=== PATIENT | female | born 1940 | race Caucasian/White ===

== ENCOUNTER → 2019-08-13 14:58 | Outpatient (BNVA) | payer MEDICARE, MEDICAID, SELFPAY | PROVIDERS: Family Provider Nurse Practitioner Family; PCP Family Medicine; Visit Provider Family Medicine | DX: R10.9 Unspecified abdominal pain (principal); M15.9 Polyosteoarthritis, unspecified | CPT/HCPCS: 81003 ==

== ENCOUNTER → 2019-10-15 16:42 | Outpatient (BNVA) | payer MEDICARE, MEDICAID, SELFPAY | PROVIDERS: Family Provider Nurse Practitioner Family; PCP Family Medicine; Visit Provider Family Medicine | DX: I10 Essential (primary) hypertension (principal); M15.9 Polyosteoarthritis, unspecified | CPT/HCPCS: 80053 ==

== ENCOUNTER 2020-08-19 11:20 | Outpatient (CLI) | payer MEDICARE, MEDICAID, SELFPAY ==
--- NOTE | 2020-08-19 11:33 | USCV_ITS ---
Shannan Luther Age: 79 Gender: F : 1940 Exam Date: 08/19/2020 11:42 Ordering Phys: Priscila Kimbrough SAND MILL OPERATOR FACING SAND-C SAND MILL OPERATOR FACING SAND Technologist: Ciro King Exam Location: [facility] [place] Indication: INTERMITTENT CLAUDICATION RIGHT LEFT Brachial 187.00 mmHg Brachial 179.00 mmHg Pressure (mmHg) Waveform Pressure (mmHg) Waveform 220.00 ADMITTANCE ATTENDANT 200.00 DPA 1.18 Ankle/Brachial Index 120.00 Pre-Exercise Toe Pressure 0.64 Pre-Exercise Toe/Brachial Index FINDINGS Normal resting NICK on the right side of 1.18 Slightly diminished resting TBI on the right side of out.64 CONCLUSIONS Features of mild peripheral artery disease in the right lower extremity Dr Elliott Singh MD [facility] (Electronically Signed) Final Date: 19 August 2020 19:11 S
== END 2020-08-19 11:21 | disposition home or self-care (01) ==
LOC: US 11:20
PROVIDERS: PCP Nurse Practitioner Family; Visit Provider Nurse Practitioner Family
DX: I73.9 Peripheral vascular disease, unspecified (principal); E78.5 Hyperlipidemia, unspecified; I10 Essential (primary) hypertension
CPT/HCPCS: 80053; 80061; 84550; 93922

== ENCOUNTER → 2020-08-27 09:18 | Outpatient (BNVA) | payer MEDICARE, MEDICAID, SELFPAY | PROVIDERS: PCP Nurse Practitioner Family; Visit Provider Nurse Practitioner Family | DX: I10 Essential (primary) hypertension (principal) | CPT/HCPCS: 80053 ==

== ENCOUNTER → 2021-02-17 13:49 | Outpatient (BNVA) | payer MEDICARE, MEDICAID, SELFPAY | PROVIDERS: PCP Nurse Practitioner Family; Visit Provider Nurse Practitioner Family | DX: R39.9 Unspecified symptoms and signs involving the genitourinary system (principal) | CPT/HCPCS: 81000 ==

== ENCOUNTER 2021-06-28 12:49 | Emergency (ER) | payer MEDICARE, MEDICAID, SELFPAY ==
--- NOTE | 2021-06-28 12:52 | ED_ITS ---
HPI - Fall General: Chief Complaint: Fall Stated Complaint: FALL L SHOULDER PAIN Time Seen by Provider: 06/28/21 12:52 History of Present Illness: HPI Narrative: Ms. Luther is a 80-year-old lady with history of hypertension and history of chronic pain who presents to the emergency department due to fall. She reports being at her baseline health and was out at [facility]. She caught her foot on a wheel that was sticking out and tripped apparently falling forward landing primarily with her left shoulder against a chair and possibly hitting her head. She denie s loss of consciousness though was not responding for a short period of time. She denies preceding chest pain, shortness of breath, lightheadedness, dizziness. She currently primarily endorses left shoulder pain. Intensity is moderate to severe. Improved with morphine prior to arrival and a sling was placed. Additionally endorses tingling in the right hand near acute contusion. She is not on any anticoagulation. No other injuries reported. No other specific changes to health, exacerbating, relieving factors identified. complaint: fall Onset (ago): minute(s) Fall from: standing Fall witnessed: yes, by bystander Place fall occurred: other Loss of consciousness: Unsure Length of LOC: second(s) Prolonged down time: no Symptoms prior to fall: none Context: tripped/slipped Location of injury: head, neck and other Severity: moderate Quality: aching Associated symptoms-after fall: Reports no associated symptoms and numbness (Tingling) Review of Systems General: Reports: 10 or more systems reviewed and unremarkable except in HPI and below [facility] ED PFSH: Medical History Dorsalgia, unspecified Enrolled in chronic care management Essential (primary) hypertension Fibromyalgia syndrome Gastro-esophageal reflux disease without esophagitis Generalized osteoarthritis Gout Hypercholesteremia Trigger finger Surgical History History of bladder surgery History of cholecystectomy History of colon surgery 10inches of colon removed History of hysterectomy History of knee replacement Hx of tubal ligation Family History Mother Heart disease Father Heart disease Social History Smoking and tobacco status: never smoked Alcohol intake: never Adopted: No Caregiver/support person: No Lives independently: Yes Marital status: Current occupational status: retired Current gender identity: Female Physical Exam Const: COMMON NORMALS: alert GENERAL APPEARANCE: cooperative and well developed HENMT: COMMON NORMALS: normocephalic and atraumatic HEAD & SCALP: nor mocephalic and atraumatic THROAT: posterior oropharynx normal Eye: COMMON NORMALS: conjunctivae normal CONJUNCTIVA: Yes conjunctivae normal SCLERA: sclerae normal Neck/C-Spine: COMMON NORMALS: supple GENERAL: Yes trachea midline Resp: COMMON NORMALS: normal respiratory effort EFFORT & INSPECTION: Yes a ble to speak in complete sentences Cardio: COMMON NORMALS: regular rate and regular rhythm RATE: regular rate RHYTHM: regular rhythm GI: COMMON NORMALS: Soft to palpation PALPATION: Yes Soft to palpation and No Tenderness to palpation present (GI) PERCUSSION: normal to percussion Extremity: OTHER: No obvious facial trauma, normal jaw alignment, no step-offs or deformities. Mild neck tenderness to palpation. Tenderness to palpation of essentially the entire left arm, distal CMS intact. Right hand tender to palpation. No snuffbox tenderness bilaterally. Contusion to the left proximal second posterior hand. No active bleeding or appreciable lacerations. Neuro: COMMON NORMALS: moves all extremities SENSORIUM/ORIENTATION: Yes alert and No Orientation impaired Psych: COMMON NORMALS: mental status grossly normal and Normal thought process present THOUGHT PROCESS: Normal thought process present Procedures Procedural Sedation Indication: fracture/dislocation reduction ASA Class: II Preparation: fish conservationist applied, pulse oximeter, supplemental O2 applied, suction/airway equipment at bedside and IV secured IV Propofol dose (mg): 75 Patient Tolerated Procedure: well Complications: none Course ED course: - Patient was seen and evaluated by me at bedside - Patient placed on cardiac monitors, IV access obtained - Initial evaluation notable for exam as above -Analgesia given - Labs notable for leukocytosis which is likely reactive. No acute electrolyte derangement, creatinine at baseline. - Imaging notable for fracture dislocation of shoulder. No other acute traumatic injury identified - Given complexity of injury orthopedics consulted and came to eval the patient in the emergency department. - Consent obtained for procedural sedation, Dr Roland obtained consent for her portion of procedure, see her separate documentation for details - I performed procedural sedation well Dr. Roland performed orthopedic procedure - Patient tolerated procedure well and upon reevaluation she had fully recovered from procedural sedation. She tolerated p.o. intake and symptoms were significantly improved. Neurovascular exam intact. - Upon serial reexamination after treatment the patient was significantly improved - Based on patient history, evaluation, labs, and imaging as interpreted the most likely cause of the patient's condition is fracture dislocation of left shoulder - The results of ED evaluation were discussed with the patient including p rescriptions and/or symptomatic cares (if applicable) including appropriate and responsible use, followup plan, and return precautions. The patient verbalized understanding and felt safe for discharge. - Patient discharged in satisfactory condition. Note: Click bubbles or prepopulated pappas in note writing are used for assistance with data collection and billing and are inherently more limited than narrative and other text portions of this note. Please use narrative for additional clinical history and defer to narrative/free test for any case of contradictory information. If information appears in only free text or click bubble it should be considered present or absent as reported. Please contact note creative writer for clarifications of clinical information or contradictory information. MDM is a brief summary, contradictory or erroneous seeming information should be clarified and full note should be reviewed. Vital Signs: Vital signs: Vital Signs Temperature 97.8 F 06/28/21 12:56 Pulse Rate 104 H 06/28/21 16:04 Respiratory Rate 16 06/28/21 16:04 Blood Pressure 209/96 06/28/21 16:04 Pulse Oximetry 96 06/28/21 16:04 MDM - Fall MDM Narrative Medical decision making narrative: 80 yo lady not on anticoagulation presenting with mechanical fall. Patient found to have fracture dislocation of left shoulder. Given complex injury orthopedics consulted in the emergency department. Dislocation and fracture reduced under procedural sedation. Patient markedly improved on reassessment and satisfactory for outpatient follow-up. Medical Records Attestation: I reviewed the patient's medical records. Lab Data Attestation: I reviewed the patient's lab results. Result diagrams: 06/28/21 15:36 06/28/21 15:36 Labs: Lab Results 06/28/21 06/28/21 15:36 15:36 WBC 14.4 10^3/uL H 10^3/uL (4.0-10.0) RBC 3.98 10^6/uL L 10^6/uL (4.1-5.3) Hgb 12.8 g/dL g/dL (11.5-15.3) Hct 38.2 % % (37.0-47.0) MCV 96.0 fl fl (81-99) MCH 32.2 pg pg (28.0-34.0) MCHC 33.5 g/dL g/dL (30.0-36.0) RDW 13.3 % % (12.1-15.1) Plt Count 239 10^3/cmm 10^3/cmm (130-400) MPV 9.9 fL fL (7.4-10.4) Neut % (Auto) 84.4 % % Lymph % (Auto) 10.2 % % [place] % (Auto) 4.2 % % Eos % (Auto) 0.1 % % Baso % (Auto) 0.3 % % Neut # (Auto) 12.17 10^3/uL H 10^3/uL (1.8-7.7) Lymph # (Auto) 1.5 10^3/uL 10^3/uL (0.8-4.8) [place] # (Auto) 0.6 10^3/uL 10^3/uL (0.2-0.9) Eos # (Auto) 0.0 10^3/uL 10^3/uL (0.0-0.8) Baso # (Auto) 0.1 10^3/uL 10^3/uL (0.0-0.1) Nucleated RBC % (auto) 0 % % Nucleated RBCs # 0.0 /100WBC /100WBC Sodium 139 mmol/L mmol/L (136-145) Potassium 4.0 mmol/L mmol/L (3.5-5.1) Chloride 103 mmol/L mmol/L (98-107) Carbon Dioxide 24 mmol/L mmol/L (22-29) Anion Gap 16.0 (5-19) BUN 21 mg/dL mg/dL (8-23) Creatinine 1.0 mg/dL H mg/dL (0.5-0.9) GFR Calculation Not Reportable Glucose 147 mg/dL H mg/dL (65-115) Calculated Osmolality 294 mOsm/kg mOsm/kg (285-295) Calcium 9.0 mg/dL mg/dL (8.5-10.5) Total Bilirubin 0.2 mg/dL mg/dL (0.15-1.2) AST 23 U/L U/L (0-32) ALT 18 U/L U/L (0-33) Alkaline Phosphatase 109 IU/L H IU/L (35-105) Total Protein 6.8 g/dL g/dL (6.6-8.7) Albumin 4.1 g/dL g/dL (3.5-5.2) Globulin 2.7 g/dL g/dL (1.3-4.6) Discharge Plan Discharge Patient Disposition: Home Clinical Impression: Closed fracture dislocation of shoulder Qualifiers: Encounter type: initial encounter Laterality: left Qualified Code(s): S42.92XA - Fracture of left shoulder girdle, part unspecified, initial encounter for closed fracture Condition: Stable Prescriptions: New oxycodone 5 mg tablet 5 mg PO Q4H PRN (Reason: pain) Qty: 20 0RF ondansetron 4 mg tablet,disintegrating 4 mg PO TID PRN (Reason: nausea and vomiting) 5 Days Qty: 15 0RF No Action nitrofurantoin macrocrystal 100 mg capsule 100 mg PO BID 7 Days Qty: 14 0RF Rx Instructions: must administer with a meal/food tramadol 50 mg tablet 50 mg PO TID 30 Days Qty: 90 2RF calcium carbonate [Calcium 600] 600 mg calcium (1,500 mg) tablet 600 mg PO ONCE 0RF magnesium 250 mg tablet 250 mg PO ONCE 0RF cholecalciferol (vitamin D3) 1,000 unit capsule 2,000 unit PO ONCE 0RF biotin 300 mcg tablet 300 mcg PO ONCE 0RF docusate sodium [Colace] 100 mg capsule 200 mg PO BID 0RF celecoxib [Celebrex] 100 mg capsule 100 mg PO DAILY Qty: 30 0RF Rx Instructions: Take 1 tablet once a day famotidine 20 mg tablet 20 mg PO BID Qty: 180 1RF lisinopril 40 mg tablet See Rx Instructions PO BID 90 Days Qty: 180 3RF Rx Instructions: pt should take 40mg in the morning and 40mg at night allopurinol 300 mg tablet 300 mg PO DAILY Qty: 90 3RF hydrochlorothiazide 25 mg tablet 25 mg PO DAILY Qty: 90 2RF Discharge Orders: Discharge ED (Routine); Ordered 06/28/21 Ordered By: Hans Bernard Referrals: Priscila Kimbrough FNP [Primary Care Provider] - Discharge Diet: Usual diet Discharge Activity: Limit activity as instructed Patient Instructions: Proximal Humerus Fracture (ED), Procedural Sedation (ED), Closed Reduction (ED), Opioid Safety Activity Restrictions/Additional Instructions: Thank you for visiting the emergency department. You were seen and evaluated for fall with shoulder injury. This had comminuted fractures and dislocation. Dislocation was reduced under procedural sedation at bedside with improved positioning. Continue to wear your shoulder immobilizer. Follow-up with Dr. Roland on Monday. Your blood pressure was noted to be elevated, please follow-up with your primary care provider. As discussed you do have an incidental finding of a thyroid nodule which can be evaluated outpatient by ultrasound. Please return to the emergency department for uncontrolled pain, sensory or circulation changes, or anything else that you are concerned about and feel nee ds emergency department evaluation. Coding Level of Care Code ED Aeronautical Design Engineer for Maame Story Exam Comprehensive
[2021-06-28 12:56] VITALS: BP 216/95; PULSE 117; RESP 18; TEMP 36.6; O2SAT 97; BMI 37.0
--- NOTE | 2021-06-28 13:22 | XR_ITS ---
WS: [email or web address] Left forearm, 2 views, 06/28/2021 Clinical Data: fall, pain Comparison: None. Findings: No fracture or dislocations are seen. The soft tissues are normal. The visualized left wrist and elbo w show no obvious abnormalities. XR/XR forearm LT 2V 83601 Impression: Negative for fracture.
--- NOTE | 2021-06-28 13:22 | CT_ITS ---
WS: [email or web address] CT CERVICAL SPINE HISTORY: fall, headstrike, neck surg hx TECHNIQUE: Contiguous 2.5 mm axial imaging performed through the entire cervical spine. Sagittal and coronal reformats also performed. All CT scans at [facility] use at least one of these dose o ptimization techniques: automated exposure control; mA and/or kV adjustment per patient size (include s targeted exams where dose is matched to clinical indication); or iterative reconstruction. DLP: 744.24 mGy.cm COMPARISON: None available. Straightening and mild LEFT curvature of the cervical spine. Degenerative disc space narrowing throug hout. No acute fracture is identified. Craniocervical junction is normal. Lateral masses of C1 and C2 are aligned. Odontoid is intact. Facet joints are aligned. Osteophytic ridging causing mild to moderate central stenosis and foraminal stenosis beginning at C3- 4 through C6-7. Nodules within the isthmus and LEFT thyroid. The largest nodule in the isthmus measures 18 mm. Lung apices are clear. CT/CT cervical spin wo con* [id number] IMPRESSION: 1. No cervical spine fracture. 2. Moderate spondylitic changes throughout the cervical spine. 3. Isthmus and LEFT thyroid nodules. If further evaluation is thought clinical ly necessary nonurgent thyroid ultrasound can be obtained.
--- NOTE | 2021-06-28 13:22 | CT_ITS ---
WS: [email or web address] CT HEAD NONCONTRAST HISTORY: fall, headstrike TECHNIQUE: Contiguous axial imaging performed through the brain in 2.5 mm imaging. Bone and soft tiss ue windows. Sagittal and coronal reformats reviewed. All CT scans at [facility] use at least one of these dose optimization techniques: automated exposure control; mA and/or kV adjustment per pa tient size (includes targeted exams where dose is matched to clinical indication); or iterative recon struction. DLP: 752.7 mGy.cm COMPARISON: None available. No acute intracranial hemorrhage, midline shift or mass effect. Mild atrophy and mild chronic microvascular ischemic disease. Small lacunar infarct in the external capsule on the LEFT. Ventricles: Normal size with no hydrocephalus. Paranasal sinuses: As visualized are clear. Mastoid air cells: Well pneumatized. Calvarium and scalp: Skull is intact with no soft tissue edema or swelling. Hyperostosis frontalis interna. CT/CT head wo con* [id number] IMPRESSION: 1. No acute intracranial hemorrhage or edema. 2. Mild atrophy and mild chronic microvascular ischemic disease.
--- NOTE | 2021-06-28 13:22 | XR_ITS ---
WS: [email or web address] RIGHT HAND: 3 VIEW(S) TECHNIQUE: PA, oblique and lateral. HISTORY: fall, pain COMPARISON: None available. No acute fracture or dislocation. Mild interphalangeal joint space narrowing. No fracture identified. XR/XR hand RT min 3V* [id number] IMPRESSION: No RIGHT hand fracture.
--- NOTE | 2021-06-28 13:22 | XR_ITS ---
WS: [email or web address] Left arm and humerus, 2 views, AP and lateral views, 06/28/2021 Clinical Data: fall, pain Comparison: None. Findings: There is an anterior subcoracoid dislocation of the left humeral head. There is a comminuted fracture of the left humeral head and neck. The distal shaft of the left humerus is intact. The soft tissues are unremarkable. XR/[place] [id number] Impression: 1. Anterior subcoracoid dislocation of the left humeral head. 2. Comminuted fracture of the left humeral head and neck.
--- NOTE | 2021-06-28 13:22 | XR_ITS ---
WS: [email or web address] LEFT HAND: 3 VIEW(S) TECHNIQUE: PA, oblique and lateral. HISTORY: fall, pain COMPARISON: None available. Diffuse osteopenia. Gullwing deformity involving the third PIP joint. Otherwise mild narrowing of the interphalangeal joints. There is a very slight cortical interruption involving the radial metaphysis . Indeterminate for fracture. No soft tissue edema. XR/XR hand LT min 3V* [id number] IMPRESSION: 1. No LEFT hand fracture identified. 2. Indeterminate for cortical break involving the distal radial metaphysis. 3. Interphalangeal joint space narrowing with gullwing deformity involving the PIP joint of the third finger. Consider erosive or psoriatic arthritis.
--- NOTE | 2021-06-28 13:22 | XR_ITS ---
WS: [email or web address] Left shoulder, 3 views, 06/28/2021 Clinical Data: fall, pain Comparison: None. Findings: There is an anterior subcoracoid dislocation of the left humeral head. There is a comminuted fracture of the left humeral head and neck. The AC joint shows minimal osteoarthritis but is intact. The adjacent left clavicle, left ribs and left scapula are unremarkable. XR/XR shoulder LT min 2V* [id number] Impression: 1. Anterior subcoracoid dislocation of the left shoulder. 2. Comminuted fracture of the left humeral head and neck.
[2021-06-28 13:29] VITALS: RESP 16
[2021-06-28] MEDS: morphine 4 mg/mL SDV 1 mL IVP (13:29)
--- NOTE | 2021-06-28 15:20 | XR_ITS ---
WS: [email or web address] Left shoulder, 2 views portable, 06/28/2021, 1518 hours Clinical Data: POST REDUCTION PRIOR TO PLACING IMMOBILIZER Comparison: Left shoulder, 06/28/2021, 1344 hours. Findings: The humeral head has been relocated into the glenoid fossa. The comminuted fracture of the humeral head and neck is seen. XR/XR shoulder LT min 2V* [id number] Impression: Reduction of left anterior subcoracoid dislocation.
--- NOTE | 2021-06-28 15:25 | XR_ITS ---
WS: [email or web address] Left shoulder, 2 views, 06/28/2021, 1527 hours. Clinical Data: post reduction Comparison: Left shoulder, today, 1518 hours. Findings: The comminuted humeral head is adjacent to the glenoid fossa. XR/XR shoulder LT min 2V* [id number] Impression: Reduction of anterior subcoracoid dislocation.
[2021-06-28 16:04] VITALS: BP 209/96; PULSE 104; RESP 16; O2SAT 96
--- NOTE | 2021-06-28 16:17 | PC.NURSE ---
DR ROMERO CAME TO REDUCE LEFT SHOULDER, DR BOWLES AT THE BEDSIDE- MEDS GIVEN BY JELENA, RT AND RAD AT THE BEDSIDE, PT ON OXYGEN, VS MONITORED, PT JAGRUTI THE REDUCTION WELL, SHOULDER IMMOBILIZER PLACED ON LEFT SHOULDER/ARM, FAMILY AT THE BEDSIDE BEFORE AND AFTER, PT IS FULLY AWAKE AND UP TO THE BSC WITHOUT ASSISTANCE
--- NOTE | 2021-06-28 16:19 | PM.CONSULT ---
Providers/Reason For Consult Consulting Physician/Specialty*: Allison Roland MD Reason for Consult*: Left shoulder fracture dislocation Requesting Physician: Hans Bernard MD Primary Care Provider: ISAIAS Dover History of Present Illness History of Present Illness Shannan Luther is a 80 year old female who presented to the emergency department after a fall at [facility]. The patient was putting her tray up onto the trace return area, and there was a wheel sticking out from underneath. She caught her foot and tripped and fell. She fell forward landing with her left shoulder against a chair. She noted she had a chair and the table. Reportedly, she did not have a loss of consciousness. She had no other reason for her falls and tripping over this we will. She presented to the emergency department and was diagnosed with a fracture dislocation of the left shoulder. I was consulted for a reduction and definitive treatment plan. Review of Systems General: Reports: 10 or more systems reviewed and unremarkable except in HPI and below (Patient was in her usual state of health with no significant complaints at ) Medications/Allergies Home Medications Medication Instructions Recorded Confirmed Last Taken Type biotin 300 mcg tablet 300 mcg PO ONCE 06/04/19 05/20/21 Unknown History calcium carbonate 600 mg calcium 600 mg PO ONCE tab 06/04/19 05/20/21 Unknown History (1,500 mg) tablet cholecalciferol (vitamin D3) 25 2,000 unit PO ONCE cap 06/04/19 05/20/21 Unknown History mcg (1,000 unit) capsule docusate sodium 100 mg capsule 200 mg PO BID cap 06/04/19 05/20/21 Unknown History magnesium 250 mg tablet 250 mg PO ONCE 06/04/19 05/20/21 Unknown History famotidine 20 mg tablet 20 mg PO BID #180 tab 02/04/20 05/20/21 Unknown Rx lisinopril 40 mg tablet See Rx Instructions PO BID 90 Days 08/05/20 05/20/21 Unknown Rx #180 tab allopurinol 300 mg tablet 300 mg PO DAILY #90 tab 09/23/20 05/20/21 Unknown Rx hydrochlorothiazide 25 mg tablet 25 mg PO DAILY #90 tab 11/02/20 05/20/21 Unknown Rx nitrofurantoin macrocrystal 100 mg 100 mg PO BID 7 Days #14 cap 02/17/21 05/20/21 Unknown Rx capsule tramadol 50 mg tablet 50 mg PO TID 30 Days #90 tab 05/20/21 05/20/21 Unknown Rx ondansetron 4 mg PO TID PRN 5 Days #15 tab 06/28/21 Unknown Rx oxycodone 5 mg PO Q4H PRN #20 tab 06/28/21 Unknown Rx Allergies Allergy/AdvReac Type Severity Reaction Status Date / Time acetaminophen [From Tylenol] Allergy swelling Verified 06/09/21 13:23 erythromycin base Allergy Unknown Verified 06/09/21 13:23 PFSH Acute PFSH: Medical History Dorsalgia, unspecified Enrolled in chronic care management Essential (primary) hypertension Fibromyalgia syndrome Gastro-esophageal reflux disease without esophagitis Generalized osteoarthritis Gout Hypercholesteremia Trigger finger Surgical History History of bladder surgery History of cholecystectomy History of colon surgery 10inches of colon removed History of hysterectomy History of knee replacement Hx of tubal ligation Family History Mother Heart disease Father Heart disease Social History Smoking and tobacco status: never smoked Alcohol intake: never Adopted: No Caregiver/support person: No Lives independently: Yes Marital status: Current occupational status: retired Current gender identity: Female Vitals/I&O/Wt Last Vital Signs Temp 97.8 F 06/28/21 12:56 Pulse 104 H 06/28/21 16:04 Resp 16 06/28/21 16:04 BP 209/96 06/28/21 16:04 Pulse Ox 96 06/28/21 16:04 Weight last 48 hrs Weight 209 lb Physical Exam Const: COMMON NORMALS: patient oriented x3 and alert GENERAL APPEARANCE: cooperative and comfortable ORIENTATION/CONSCIOUSNESS: Yes awake HENMT: COMMON NORMALS: normocephalic and atraumatic HEAD & SCALP: normocephalic and atraumatic Eye: GENERAL EYE: appearance normal, both eyes and all related structures Chest: COMMONS NORMALS: normal inspection of the chest Resp: COMMON NORMALS: normal respiratory effort EFFORT & INSPECTION: Yes able to speak in complete sentences and Yes symmetric chest movement Extremity: LEFT UPPER EXTREMITY: Yes shoulder joint (Deformity secondary to anterior fracture dislocation) Left shoulder joint: Yes palpation (Tender), Yes ROM (Not evaluated) and Yes neurovascular exam (Intact distally) Neuro: COMMON NORMALS: patient oriented x3 SENSORIUM/ORIENTATION: Yes alert Psych: COMMON NORMALS: mental status grossly normal APPEARANCE: Yes grossly normal ATTITUDE: Yes calm and Yes engaged ATTENTION/CONCENTRATION: Yes attention grossly intact Skin: COMMON NORMALS: no rashes or lesions noted GENERAL SKIN EXAM: no rashes or lesions noted Data Imaging^: Xray Ortho: I personally reviewed and interpreted this imaging study as follows: My impression: Pre and post reduction images of the patient's left shoulder were reviewed. Additional imaging studies orthopedically obtained in the emergency department are also personally reviewed by me. There is no obvious acute fracture or dislocation aside from that visualized in the shoulder. Patient had an anterior fracture dislocation of the left shoulder with comminution of the humeral head. Postreduction images demonstrate that the fracture dislocation is reduced. A&P Assessment and plan (1) Closed fracture dislocation of shoulder: I was called to the emergency department for emergent reduction of a left shoulder fracture dislocation. IV sedation was given by the emergency room physician. Appropriate timeout was performed. Discussion was undertaken with the patient and family regarding plans for reduction in the emergency department and possible need for surgical intervention in the future. They understood and consents were signed. Shoulder was reduced uneventfully. The patient was placed in a shoulder immobilizer. Postoperative images demonstrated reduction of the patient's fracture dislocation. Status: Acute Qualifiers: Encounter type: initial encounter Laterality: left Qualified Code(s): S42.92XA - Fracture of left shoulder girdle, part unspecified, initial encounter for closed fracture Consult Attestations Medical Necessity Statement: Patient was discharged from the emergency department Procedures Orthopedic Joint Reduction^ Left shoulder fracture dislocation reduction: Time out performed: Yes Side: left Joint reduction location: shoulder Analgesia: procedural sedation Shoulder technique used (if applicable): traction/counter-traction and external rotation Technique used: direct manipulation Post-reduction neuro exam: intact Post-reduction vascular exam: intact Post-reduction x-ray obtained: Yes Post-reduction x-ray results: reduced Splint applied: Yes Patient tolerated procedure: well Additional comments: Patient will follow up with me in the office Coding Level of Care Code Acute Reinforcing Steel Worker Wire Mesh for [facility] Fwd Exam Comprehensive Diagnoses Closed fracture dislocation of shoulder S42.92XA Encounter type: initial encounter Laterality: left
[2021-06-28 16:21] LABS: Alanine Aminotransferase 18 U/L (0-33); Albumin Level 4.1 g/dL (3.5-5.2); Alkaline Phosphatase 109 IU/L (35-105); Aspartate Amino Transferase 23 U/L (0-32); Blood Urea Nitrogen 21 mg/dL (8-23); Carbon Dioxide 24 mmol/L (22-29); Chloride 103 mmol/L (98-107); Globulin 2.7 g/dL (1.3-4.6); Glucose 147 mg/dL (65-115); Osmolality Calculated 294 mOsm/kg (285-295); Sodium 139 mmol/L (136-145); Total Bilirubin 0.2 mg/dL (0.15-1.2); Total Protein 6.8 g/dL (6.6-8.7)
[2021-06-28 16:24] LABS: Basophils # 0.1 10^3/uL (0.0-0.1); Basophils % 0.3 %; Eosinophils % 0.1 %; Hematocrit 38.2 % (37.0-47.0); Hemoglobin 12.8 g/dL (11.5-15.3); Lymphocytes # 1.5 10^3/uL (0.8-4.8); Lymphocytes % 10.2 %; Mean Corpuscular HGB Conc 33.5 g/dL (30.0-36.0); Mean Corpuscular Hemoglobin 32.2 pg (28.0-34.0); Mean Platelet Volume 9.9 fL (7.4-10.4); Monocytes # 0.6 10^3/uL (0.2-0.9); Monocytes % 4.2 %; Neutrophils # 12.17 10^3/uL (1.8-7.7); Neutrophils % 84.4 %; Nucleated Red Blood Cells % 0 %; Platelet Count 239 10^3/cmm (130-400); Red Blood Count 3.98 10^6/uL (4.1-5.3); Red Cell Distribution Width 13.3 % (12.1-15.1); White Blood Count 14.4 10^3/uL (4.0-10.0)
--- NOTE | 2021-06-28 16:25 | PC.NURSE ---
REVIEWED DISCHARGE WITH PATIENT AND FAMILY- ALL VERBALIZE UNDERSTANDING OF INSTRUCTIONS, MEDICATIONS AND FOLLOW UP, PATIENT TAKEN TO LOBBY VIA WHEELCHAIR, ALL BELONGINGS WITH FAMILY
== END 2021-06-28 16:32 | disposition home or self-care (01) ==
PROVIDERS: Emergency Provider Emergency Medicine; PCP Nurse Practitioner Family
DX: S42.92XA Fracture of left shoulder girdle, part unspecified, initial encounter for closed fracture (principal); S43.085A Other dislocation of left shoulder joint, initial encounter; I10 Essential (primary) hypertension; W01.0XXA Fall on same level from slipping, tripping and stumbling without subsequent striking against object, initial encounter
CPT/HCPCS: 23650; 70450; 72125; 73030; 73060; 73090; 73130; 80053; 85025; 96374; 99283; J2270

== ENCOUNTER → 2021-06-30 09:56 | Outpatient (BNVA) | payer MEDICARE, SELFPAY | PROVIDERS: PCP Nurse Practitioner Family; Referring Provider Emergency Medicine; Visit Provider Specialist | DX: S42.352A Displaced comminuted fracture of shaft of humerus, left arm, initial encounter for closed fracture (principal); S43.005A Unspecified dislocation of left shoulder joint, initial encounter; X58.XXXA Exposure to other specified factors, initial encounter; S42.212A Unspecified displaced fracture of surgical neck of left humerus, initial encounter for closed fracture | CPT/HCPCS: 73030 ==

== ENCOUNTER → 2021-07-19 13:41 | Outpatient (BNVA) | payer MEDICARE, SELFPAY | PROVIDERS: PCP Nurse Practitioner Family; Visit Provider Specialist | DX: S42.212D Unspecified displaced fracture of surgical neck of left humerus, subsequent encounter for fracture with routine healing (principal); W19.XXXA Unspecified fall, initial encounter; S43.005D Unspecified dislocation of left shoulder joint, subsequent encounter | CPT/HCPCS: 73030 ==

== ENCOUNTER → 2021-08-16 10:52 | Outpatient (BNVA) | payer MEDICARE, SELFPAY | PROVIDERS: PCP Nurse Practitioner Family; Visit Provider Specialist | DX: S42.292D Other displaced fracture of upper end of left humerus, subsequent encounter for fracture with routine healing (principal); X58.XXXD Exposure to other specified factors, subsequent encounter | CPT/HCPCS: 73030 ==

== ENCOUNTER → 2021-09-27 10:25 | Outpatient (BNVA) | payer MEDICARE, MEDICAID, SELFPAY | PROVIDERS: PCP Nurse Practitioner Family; Visit Provider Specialist | DX: S42.92XD Fracture of left shoulder girdle, part unspecified, subsequent encounter for fracture with routine healing (principal); X58.XXXA Exposure to other specified factors, initial encounter | CPT/HCPCS: 73030; 99213 ==

== ENCOUNTER → 2022-01-05 08:38 | Outpatient (BNVA) | payer MEDICARE, MEDICAID, SELFPAY | PROVIDERS: PCP Nurse Practitioner Family; Visit Provider Nurse Practitioner Family | DX: I10 Essential (primary) hypertension (principal); M10.9 Gout, unspecified; M15.9 Polyosteoarthritis, unspecified | CPT/HCPCS: 80053; 80061; 82306; 84550 ==

== ENCOUNTER → 2022-02-03 09:55 | Outpatient (BNVA) | payer MEDICARE, MEDICAID, SELFPAY | PROVIDERS: PCP Nurse Practitioner Family; Visit Provider Nurse Practitioner Family | DX: I10 Essential (primary) hypertension (principal); E55.9 Vitamin D deficiency, unspecified; E78.5 Hyperlipidemia, unspecified | CPT/HCPCS: 80053; 80061; 82306 ==

== ENCOUNTER → 2022-09-02 10:21 | Outpatient (BNVA) | payer MEDICARE, MEDICAID, SELFPAY | PROVIDERS: PCP Nurse Practitioner Family; Visit Provider Nurse Practitioner Family | DX: I10 Essential (primary) hypertension (principal) | CPT/HCPCS: 80053; 80061 ==

== ENCOUNTER 2022-10-09 09:37 | Emergency (ER) | payer MEDICARE, MEDICAID, SELFPAY ==
[2022-10-09 09:39] VITALS: PULSE 89; RESP 17; O2SAT 97
--- NOTE | 2022-10-09 09:52 | CTR_ITS ---
PROCEDURE INFORMATION: Exam: CT Pelvis Without Contrast Exam date and time: 10/09/2022 10:11 AM Age: 81 years old Clinical indication: Hip pain and pelvic pain; Right hip; Prior surgery; Surgery type: Colon 8 (diverticulitis); Additional info: R hip pain/r lower ab/pelvic pain TECHNIQUE: Imaging protocol: Computed tomography of the pelvis without contrast. Radiation optimization: All CT scans at this facility use at least one of these dose optimization techniques: automated exposure control; mA and/or kV adjustment per patient size (includes targeted exams where dose is matched to clinical indication); or iterative reconstruction. REPORTING DATA: Count of CT and Cardiac NM exams in prior 12 months: This patient has received 0 known CTs and 0 known cardiac nuclear medicine studies in the 12 months prior to the current study. COMPARISON: No relevant prior studies available. RADIATION DOSE METRICS: Total DLP (mGy-cm): 714.16 FINDINGS: Stomach and bowel: There has been prior partial sigmoid resection. Appendix: Mild prominence of the appendix. No significant periappendiceal stranding to suggest acute appendicitis. Intraperitoneal space: No free intraperitoneal air is seen. Lymph nodes: No significant lymphadenopathy. Urinary bladder: The bladder wall is thickened. Correlate with urinalysis to assess for cystitis. Reproductive: Status post hysterectomy. Bones/joints: Grade 1 anterolisthesis of L5. Grade 1 retrolistheses of L2 and L3. There is moderate to severe central spinal canal narrowing at multiple lumbar levels. No fracture, dislocation or subluxation. No periosteal reaction or supsicious bone lesion. No significant osteoarthritis. Soft tissues: Small fat containing periumbilical hernia. There is a fluid collection deep in the umbilicus measuring 1.9 x 1.4 x 1.8 cm. There is a small fluid collection within the pannus measuring 1.2 x 1[address]/CT pelvis wo con [id number] IMPRESSION: 1. Fluid collection deep in the umbilicus that could represent an abscess. There is a smaller fluid collection within the pannus that could represent a seroma. An abscess is difficult to exclude. 2. Degenerative changes in the lumbar spine with moderate to severe central spinal canal narrowing at multiple levels. 3. The bladder wall is thickened. Correlate with urinalysis to assess for cystitis. 4. Small fat containing periumbilical hernia. 5. No acute fracture.
--- NOTE | 2022-10-09 09:55 | W.ED.EXTPRO ---
HPI - Extremity Problem General: Chief complaint: Extremity Problem,Nontraumatic Stated complaint: RIGHT HIP PAIN Time Seen by Provider: 10/09/22 09:39 Source: patient Mode of arrival: EMS Limitations: no limitations History of Present Illness: Patient is an 81-year-old female who presents to ED today via EMS for evaluation of right hip. Patient states pain initially started approximately 4 to 5 days ago. No injury or trauma. She states about 3 days ago she was seen at [facility] ED and states they checked a urine and told me it was a pinched nerve . She states she was not discharged home with any medications. She states she has seen her chiropractor without any relief of her symptoms. She reports chronic back pain. She states pain seems to be localized to the right hip but often times will point more so to her right lower abdomen. She denies nausea, vomiting, changes in bowel movements. She does report a previous history of a diverticulitis. She states her pain seems to be worse with walking/ambulation which she does frequently. Denies radicular symptoms into her right lower extremity. She has not noticed any swelling or color/temperature changes to the leg. Denies fevers or chills. She states she does have an upcoming appointment with her PCP this week. MD Complaint: joint pain Onset (ago): day(s) Pain Consistency: constant Location: right and lower extremity Radiation: none Relieving factors: nothing Exacerbating factors: weight bearing and walking Associated symptoms: Reports no associated symptoms; Deny chest pain, fever(s) or rash Review of Systems Const: Denies: fever(s), chills, body aches, fatigue or malaise Eyes: Denies: change in vision or blurry vision Card: Denies: chest pain, palpitations, irregular heart rhythm, lightheadedness, syncope or dyspnea on exertion Resp: Denies: dyspnea, productive cough or pain on inspiration GI: Reports: abdominal pain; Denies: nausea, vomiting, heartburn or diarrhea : Denies: flank pain, difficulty voiding, dysuria, urinary frequency, urinary urgency or urinary hesitancy Musc: Reports: back pain and joint pain (R hip); Denies: neck pain, extremity pain, extremity swelling, joint swelling, joint redness, joint warmth, muscle cramps or muscle weakness Skin/Breast: Denies: rash Neuro: Reports: difficulty walking (secondary to pain); Denies: headache(s), numbness in extremities, weakness in extremities or sensory changes PFSH ED PFSH: Medical History Dorsalgia, unspecified Enrolled in chronic care management Essential (primary) hypertension Fibromyalgia syndrome Gastro-esophageal reflux disease without esophagitis Generalized osteoarthritis Gout Hypercholesteremia Thyroid nodule greater than or equal to 1.5 cm in diameter incidentally noted on imaging study Trigger finger Surgical History History of bladder surgery History of cholecystectomy History of colon surgery 10inches of colon removed History of hysterectomy History of knee replacement Hx of tubal ligation Family History Mother Heart disease Father Heart disease Social History Smoking and tobacco status: never smoked Alcohol intake: never Substance/Drug Use: never Adopted: No Caregiver/support person: No Lives independently: Yes Marital status: Current occupational status: retired Do you think of yourself as: Straight/Heterosexual Current gender identity: Female Physical Exam Const: COMMON NORMALS: no acute distress, patient oriented x3, no limitations, healthy appearing, alert and well nourished GENERAL APPEARANCE: cooperative ORIENTATION/CONSCIOUSNESS: Yes awake, Yes oriented to person, Yes oriented to place and Yes oriented to time HENMT: COMMON NORMALS: normocephalic and atraumatic HEAD & SCALP: normal to inspection, normocephalic and atraumatic Eye: COMMON NORMALS: no scleral icterus Neck/C-Spine: COMMON NORMALS: full ROM, no lymphadenopathy, supple and no meningeal signs Chest: COMMONS NORMALS: normal inspection of the chest and normal palpation of entire chest wall Resp: COMMON NORMALS: normal respiratory effort and clear to auscultation bilaterally AUSCULTATION: clear to auscultation bilaterally Cardio: COMMON NORMALS: regular rate and regular rhythm RATE: regular rate RHYTHM: regular rhythm GI: COMMON NORMALS: Normal to inspection, nondistended, normoactive bowel sounds present, Soft to palpation, No hepatosplenomegaly present and no masses INSPECTION: Yes normal to inspection AUSCULTATION: Yes normoactive bowel sounds PALPATION: Yes Soft to palpation, Yes Tenderness to palpation present (GI) (RLQ/pelvis under pannus ), No Guarding due to palpation present (GI), No Rigid due to palpation and Yes No hepatosplenomegaly present : COMMON NORMALS: Yes no CVA tenderness BLADDER/KIDNEY EXAM: Yes no CVA tenderness Back/Pelvis: COMMON NORMALS: no CVA tenderness, thoracic and lumbar spine normal to inspection and no thoracic nor lumbar tenderness Extremity: COMMON NORMALS: normal to inspection, capillary refill normal, no joint enlargement, no clubbing, cyanosis or edema, no calf tenderness and no pedal edema GENERAL: Yes normal exam except as noted RIGHT LOWER EXTREMITY: Yes hip joint (TTP throughout R hip joint-poorly localized; worsens with ambulation) Right hip: Yes inspection (normal), Yes ROM (fairly normal ROM although does state it hurts her back/abdomen) and Yes neurovascular exam (normal) Neuro: COMMON NORMALS: patient oriented x3, moves all extremities, no focal motor deficits and no sensory deficits noted SENSORIUM/ORIENTATION: Yes alert, Yes oriented to person, Yes oriented to place and Yes oriented to time MENINGEAL SIGNS: Yes no meningeal signs MOTOR EXAM: 5/5 motor strength present throughout Skin: COMMON NORMALS: no rashes or lesions noted GENERAL SKIN EXAM: no rashes or lesions noted Course Vital Signs: Vital signs: Vital Signs Pulse Rate 89 10/09/22 09:39 Respiratory Rate 17 10/09/22 09:39 Pulse Oximetry 97 10/09/22 09:39 Oxygen Delivery Me thod Room Air 10/09/22 09:39 MDM - Extremity (Nontraumatic) Medical Decision Making Patient here with complaints of right hip pain, back pain, possible abdominal pain. Her UA is clear. CT pelvis ordered as this would evaluate not only the hip but also back/abdominal/pelvis etiology. She has chronic degenerative changes in her lumbar spine at multiple levels with moderate to severe central spinal canal narrowing. The hip joint itself appeared normal. Radiologist did comment on 2 separate fluid collections near her umbilicus and within her pannus both measuring approximately 1.5 x 1.5 cm. Radiologist stated these could be seromas vs abscesses. Patient has no tenderness near or around her umbilicus or within the pannus itself and I have no clinical suspicion these are abscesses. Her pain seems to be reproducible with palpation and movement as well as ambulation of the right hip. I suspect non-emergent etiology of hip pain such as hip bursitis/impingement/upper lumbar radiculopathy. Patient will be placed on steroids. She already takes Celebrex-she can switch this out for Aleve if she feels this works better. She is asking if she can up her Tramadol temporarily to help with discomfort. She states she takes one tablet every 8 hours I think this is appropriate short term-will write her more for this. She has appointment with PCP this for further follow up. Lab Data 10/09/22 10:52 10/09/22 10:[address] 10/09/22 09:52 IMPRESSION: 1. Fluid collection deep in the umbilicus that could represent an abscess. There is a smaller fluid collection within the pannus that could represent a seroma. An abscess is difficult to exclude. 2. Degenerative changes in the lumbar spine with moderate to severe central spinal canal narrowing at multiple levels. 3. The bladder wall is thickened. Correlate with urinalysis to assess for cystitis. 4. Small fat containing periumbilical hernia. 5. No acute fracture. Laboratory Results WBC 9.2 10^3/uL (4.0-10.0) 10/09/22 10:52 RBC 3.82 10^6/uL (4.1-5.3) L 10/09/22 10:52 Hgb 12.1 g/dL (11.5-15.3) 10/09/22 10:52 Hct 36.9 % (37.0-47.0) L 10/09/22 10:52 MCV 96.6 fl (81-99) 10/09/22 10:52 MCH 31.7 pg (28.0-34.0) 10/09/22 10:52 MCHC 32.8 g/dL (30.0-36.0) 10/09/22 10:52 RDW 13.4 % (12.1-15.1) 10/09/22 10:52 Plt Count 230 10^3/cmm (130-400) 10/09/22 10:52 MPV 10.0 fL (7.4-10.4) 10/09/22 10:52 Neut % (Auto) 68.1 % 10/09/22 10:52 Lymph % (Auto) 22.5 % 10/09/22 10:52 [place] % (Auto) 7.2 % 10/09/22 10:52 Eos % (Auto) 1.0 % 10/09/22 10:52 Baso % (Auto) 0.4 % 10/09/22 10:52 Neut # (Auto) 6.29 10^3/uL (1.8-7.7) 10/09/22 10:52 Lymph # (Auto) 2.1 10^3/uL (0.8-4.8) 10/09/22 10:52 [place] # (Auto) 0.7 10^3/uL (0.2-0.9) 10/09/22 10:52 Eos # (Auto) 0.1 10^3/uL (0.0-0.8) 10/09/22 10:52 Baso # (Auto) 0.0 10^3/uL (0.0-0.1) 10/09/22 10:52 Nucleated RBC % (auto) 0 % 10/09/22 10:52 Nucleated RBCs # 0.0 /100WBC 10/09/22 10:52 Sodium Cancelled 10/09/22 10:52 Potassium Cancelled 10/09/22 10:52 Chloride Cancelled 10/09/22 10:52 Carbon Dioxide Cancelled 10/09/22 10:52 Anion Gap Cancelled 10/09/22 10:52 BUN Cancelled 10/09/22 10:52 Creatinine Cancelled 10/09/22 10:52 GFR Calculation Cancelled 10/09/22 10:52 Glucose Cancelled 10/09/22 10:52 Calculated Osmolality Cancelled 10/09/22 10:52 Calcium Cancelled 10/09/22 10:52 Total Bilirubin Cancelled 10/09/22 10:52 AST Cancelled 10/09/22 10:52 ALT Cancelled 10/09/22 10:52 Alkaline Phosphatase Cancelled 10/09/22 10:52 Total Protein Cancelled 10/09/22 10:52 Albumin Cancelled 10/09/22 10:52 Globulin Cancelled 10/09/22 10:52 Urine Color Colorless (Yellow) 10/09/22 10:10 Urine Appearance Clear (CLEAR) 10/09/22 10:10 Urine pH 8 (5-7) H 10/09/22 10:10 Ur Specific [place] 1.010 (1.005-1.030) 10/09/22 10:10 Urine Protein Neg (Negative) 10/09/22 10:10 Urine Glucose (UA) Norm (Normal) 10/09/22 10:10 Urine Ketones Negative (Negative) 10/09/22 10:10 Urine Blood Neg (Negative) 10/09/22 10:10 Urine Nitrate Negative (Negative) 10/09/22 10:10 Urine Bilirubin Neg (Negative) 10/09/22 10:10 Prot Sulfosalicylic Acd Negative (Negative) 10/09/22 10:10 Urine Urobilinogen Norm mg/dL (Negative) 10/09/22 10:10 Ur Leukocyte Esterase Negative (Negative) 10/09/22 10:10 Discharge Plan Discharge Patient Disposition: Home Clinical Impression: Acute pain of right hip Condition: Stable Prescriptions: New prednisone 10 mg tablet 10 mg PO DAILY 10 Days Qty: 27 0RF Rx Instructions: 6 tabs on days 1-2, 5 tabs on days 3, 4 tabs on day 4, 3 tabs on day 5, 2 tabs on day 6, 1 tab on day 7 tramadol 50 mg tablet 50 mg PO .q 4-6 PRN (Reason: pain) Qty: 15 0RF No Action calcium carbonate [Calcium 600] 600 mg calcium (1,500 mg) tablet 600 mg PO ONCE magnesium 250 mg tablet 250 mg PO ONCE cholecalciferol (vitamin D3) 1,000 unit capsule 2,000 unit PO ONCE docusate sodium [Colace] 100 mg capsule 200 mg PO BID furosemide [Lasix] 20 mg tablet 20 mg PO QAM PRN (Reason: edema) 2 Days Qty: 30 0RF Hair,Skin and Nails Tablet 1 tab PO DAILY tramadol 50 mg tablet 50 mg PO Q8H PRN (Reason: pain) Qty: 90 2RF allopurinol 300 mg tablet See Rx Instructions .ROUTE .COMPLEX Qty: 100 0RF Dose Instruction: Take 1 tablet by mouth once daily Rx Instructions: Take 1 tablet by mouth once daily famotidine 20 mg tablet 20 mg PO BID Qty: 200 0RF hydrochlorothiazide 25 mg tablet See Rx Instructions .ROUTE .COMPLEX Qty: 100 0RF Dose Instruction: TAKE 1 TABLET BY MOUTH ONCE DAILY (IN ADDITION TO THE LISINOPRIL) Rx Instructions: TAKE 1 TABLET BY MOUTH ONCE DAILY (IN ADDITION TO THE LISINOPRIL) lisinopril 40 mg tablet See Rx Instructions .ROUTE .COMPLEX Qty: 200 0RF Dose Instruction: TAKE 1 TABLET BY MOUTH IN THE MORNING AND 1 TABLET NIGHTLY Rx Instructions: TAKE 1 TABLET BY MOUTH IN THE MORNING AND 1 TABLET NIGHTLY celecoxib 100 mg capsule See Rx Instructions .ROUTE .COMPLEX Qty: 60 2RF Dose Instruction: TAKE 1 CAPSULE BY MOUTH TWICE DAILY NEEDED FOR PAIN Rx Instructions: TAKE 1 CAPSULE BY MOUTH TWICE DAILY NEEDED FOR PAIN Discharge Orders: Discharge ED (Routine); Ordered 10/09/22 Ordered By: Nellie Pedroza Referrals: Priscila Kimbrough FNP [Primary Care Provider] - Patient Instructions: Hip Pain (ED), Opioid Safety, Pain Management Activity Restrictions/Additional Instructions: As we discussed you may continue your Celebrex twice daily OR switch and take an Aleve twice daily. Do not take both of these medications together. I will place you on a steroid taper and give you additional pain medications in case you need to take them more frequently than you are currently scheduled. Please follow-up with your primary care provider this week as scheduled. Coding Level of Care Code ED Booking Manager for [facility]
[2022-10-09 10:12] LABS: Add Urine Microscopic? NO; Charge for UA Resulting for Rev
[2022-10-09 10:17] LABS: Bilirubin Urine Neg (Negative); Blood Urine Neg (Negative); Glucose Urine UA Norm (Normal); Ketones Urine Negative (Negative); Leukocyte Esterase Urine Negative (Negative); Nitrate Urine Negative (Negative); Protein Urine Neg (Negative); Sulfosalicylic Acid Urine Negative (Negative); Urine Appearance Clear (CLEAR); Urine Color Colorless (Yellow); Urobilinogen Urine Norm (Negative); pH Urine 8 (5-7)
[2022-10-09 10:59] LABS: Basophils % 0.4 %; Eosinophils # 0.1 10^3/uL (0.0-0.8); Hematocrit 36.9 % (37.0-47.0); Hemoglobin 12.1 g/dL (11.5-15.3); Lymphocytes # 2.1 10^3/uL (0.8-4.8); Lymphocytes % 22.5 %; Mean Corpuscular HGB Conc 32.8 g/dL (30.0-36.0); Mean Corpuscular Hemoglobin 31.7 pg (28.0-34.0); Mean Corpuscular Volume 96.6 fl (81-99); Monocytes # 0.7 10^3/uL (0.2-0.9); Monocytes % 7.2 %; Neutrophils # 6.29 10^3/uL (1.8-7.7); Neutrophils % 68.1 %; Nucleated Red Blood Cells % 0 %; Platelet Count 230 10^3/cmm (130-400); Red Blood Count 3.82 10^6/uL (4.1-5.3); Red Cell Distribution Width 13.4 % (12.1-15.1); White Blood Count 9.2 10^3/uL (4.0-10.0)
[2022-10-09] MEDS: lisinopril 20 mg Tablet 40 MG PO (11:05)
[2022-10-09] MEDS: ondansetron 2 mg/ML SDV 2 mL 4 MG IVP (11:05)
[2022-10-09] MEDS: morphine 4 mg/mL SDV 1 mL IVP (11:05)
== END 2022-10-09 12:03 | disposition home or self-care (01) ==
PROVIDERS: Emergency Provider Physician Assistant; PCP Nurse Practitioner Family
DX: M25.551 Pain in right hip (principal); I10 Essential (primary) hypertension
CPT/HCPCS: 72192; 81003; 85025; 96374; 96375; 99285; J2270; J2405

== ENCOUNTER 2022-10-27 13:19 | Outpatient (CLI) | payer MEDICARE, MEDICAID, SELFPAY ==
--- NOTE | 2022-10-27 13:45 | MR_ITS ---
WS: [id number] MRI LUMBAR SPINE NONCONTRAST HISTORY: M48.061 - Spinal stenosis, lumbar region without neurogenic claudication COMPARISON: None available. TECHNIQUE: Sagittal and axial multisequence imaging is submitted. Cervical, thoracic and lumbar curvature. Increase in the thoracic kyphosis. Central cervical canal st enosis due to bulging disc and facet disease. Stenosis at several levels but most significant at C4-5 and C5-6. Additional disc protrusions at T7-8 and T8-9. Increase in the lumbar lordosis. 5 mm retrolisthesis of L2 and L3. L1: Decreased signal on the T1 sequence and increased on the T2 and STIR sequence. Edema throughout t he L1 vertebral body with slight retropulsion. Biconcave fracture 50%. 3 mm retropulsion of the poste rior vertebral body. Edema extends into the discs at T12-L1 and L1-2. Soft tissue edema surrounding t he facet joints at L1-2 due to the recent fall. Disc spaces are mildly narrowed and desiccated. Conus terminates normally at L1-2 disc level. T12-L1: Bilateral facet joint arthritis. L1-L2: Very mild retropulsion of the posterior vertebral body due to the compression fracture. Retrop ulsion measuring approximately 3 mm. Encroachment upon the ventral thecal sac with mild narrowing of the subarticular recesses and foramina. L2-L3: Moderate diffuse annular disc bulging asymmetric into the LEFT foramen. Disc encroachment upon the ventral thecal sac narrowing the subarticular recesses. Disc bulging versus osteophyte extending into the LEFT foramen resulting in moderate LEFT foraminal stenosis and mild on the RIGHT. L3-L4: Moderate central, bilateral subarticular recess and severe foraminal stenosis due to combinati on of disc and facet disease. Bilateral foraminal disc protrusions are likely. More severe stenosis i nvolving the RIGHT foramen. L4-L5: Moderate annular disc bulging with marked ligamentum flavum and facet arthritis. RIGHT foramin al disc protrusion. Severe central, bilateral subarticular recess and moderate foraminal stenosis. L5-S1: Diffuse annular disc bulging encroaching upon the ventral thecal sac. Contact on the S1 nerve roots by disc bulging. Marked facet arthritis. Severe LEFT and moderate RIGHT foraminal stenosis. Paravertebral soft tissues are negative for acute process. MR/MR lumbar spine wo con* [id number] IMPRESSION: 1. Acute L1 compression fracture with 3 mm retropulsion of the posterior vert ebral body. Biconcave fracture with at least 50% loss of height. 2. L2-3: Moderate LEFT foraminal stenosis and mild on the RIGHT at L2-3. Mild subarticular recess encroachment by disc disease. 3. L3-4: Moderate central, bilateral subarticular recess and severe foraminal stenosis at L3-4. Greatest stenosis involving the RIGHT foramen. 4. L4-5: Severe central, bilateral subarticular recess and moderate foraminal stenosis. RIGHT foraminal disc protrusion. 5. L5-S1: Severe LEFT and moderate RIGHT foraminal stenosis. 6. Cervical stenosis at C4-5 and C5-6.
== END 2022-10-27 13:20 | disposition home or self-care (01) ==
PROVIDERS: PCP Nurse Practitioner Family; Visit Provider Family Medicine
DX: S32.019A Unspecified fracture of first lumbar vertebra, initial encounter for closed fracture (principal); M51.36 Other intervertebral disc degeneration, lumbar region; M48.061 Spinal stenosis, lumbar region without neurogenic claudication; X58.XXXA Exposure to other specified factors, initial encounter
CPT/HCPCS: 72148

== ENCOUNTER → 2022-11-03 12:56 | Outpatient (BNVA) | payer MEDICARE, MEDICAID, SELFPAY | PROVIDERS: PCP Nurse Practitioner Family; Visit Provider Orthopaedic Surgery | DX: Z01.818 Encounter for other preprocedural examination (principal); M54.9 Dorsalgia, unspecified; S32.000A Wedge compression fracture of unspecified lumbar vertebra, initial encounter for closed fracture; X58.XXXA Exposure to other specified factors, initial encounter; N28.9 Disorder of kidney and ureter, unspecified | CPT/HCPCS: 36415; 72100; 80053; 81003; 85025; 99204 ==

== ENCOUNTER 2022-11-14 08:14 | Day surgery (SDC) | payer MEDICARE, MEDICAID, SELFPAY ==
[2022-11-09 13:24] VITALS: BMI 31.3
--- NOTE | 2022-11-09 14:07 | ANES.PREANE2 ---
Pre-Anesthetic Assessment Height/Weight: Height 1.6 m Weight 80.286 kg Operation Date: 11/14/22 10:05 Proposed Procedures p Kyphoplasty [id number],S32.010A(Not Applicable) - Tan Kramer DO Familial anesthetic complications: Slow to wake up, PONV wants peppermint and scop patch Social No alcohol and No tobacco Exam alert, oriented x 3, clear to auscultation bilaterally and regular rate & rhythm Airway Mallampati: Class III Dentition: false CV/HEM Hypertension Chronic Renal Insufficiency GI Gastroesophageal Reflux Disease Metabolic Hyperlipidemia [facility] [place] Fibromyalgia Anesthetic Plan ASA status: 3 Anesthesia: General Risk of > 500 ml blood loss (7ml/kg in children): No Medications/Allergies Home Medications Medication Instructions Recorded Confirmed Last Taken Type calcium carbonate 600 mg calcium 600 mg PO ONCE 06/04/19 11/09/22 11/08/22 History (1,500 mg) tablet (Calcium) cholecalciferol (vitamin D3) 25 2,000 unit PO ONCE 06/04/19 11/09/22 11/08/22 History mcg (1,000 unit) capsule docusate sodium 100 mg capsule 200 mg PO BID 06/04/19 11/09/22 11/06/22 History (Colace) magnesium 250 mg tablet 250 mg PO ONCE 06/04/19 11/09/22 11/08/22 History multivitamin with minerals 1 tab PO DAILY 02/15/22 11/09/22 10/04/22 History (Hair,Skin and Nails tablet) allopurinol 300 mg tablet See Rx Instructions .Route 08/30/22 11/09/22 11/09/22 Rx .COMPLEX #100 tabs famotidine 20 mg tablet 20 mg PO BID #200 tabs 08/30/22 11/09/22 09/20/22 Rx hydrochlorothiazide 25 mg tablet See Rx Instructions .Route 08/30/22 11/09/22 11/09/22 Rx .COMPLEX #100 tabs lisinopril 40 mg tablet See Rx Instructions .Route 08/30/22 11/09/22 11/08/22 Rx .COMPLEX #200 tabs celecoxib 100 mg capsule See Rx Instructions .Route 09/05/22 11/09/22 11/07/22 Rx .COMPLEX #60 caps tramadol 50 mg tablet 50 mg PO Q6H PRN pain #120 tabs 10/18/22 11/09/22 11/09/22 Rx furosemide 20 mg tablet (Lasix) 20 mg PO QAM PRN edema 2 days #30 11/02/22 11/09/22 09/14/22 Rx tabs oxycodone 5 mg tablet 5 mg PO Q8H PRN pain 5 days #14 11/02/22 11/09/22 11/09/22 Rx tabs potassium citrate 99 mg capsule 99 mg PO 1XD 11/09/22 11/09/22 11/09/22 History Allergies Allergy/AdvReac Type Severity Reaction Status Date / Time acetaminophen [From Tylenol] Allergy swelling Verified 11/09/22 13:14 erythromycin base Allergy Unknown Verified 11/09/22 13:14 PFSH Anesthesia Medical History Dorsalgia, unspecified Enrolled in chronic care management Essential (primary) hypertension Fibromyalgia syndrome Gastro-esophageal reflux disease without esophagitis Generalized osteoarthritis Gout Hypercholesteremia Thyroid nodule greater than or equal to 1.5 cm in diameter incidentally noted on imaging study Trigger finger Surgical History History of bladder surgery History of cholecystectomy History of colon surgery 10inches of colon removed History of hysterectomy History of knee replacement Hx of tubal ligation Family History Mother Heart disease Father Heart disease Social History Smoking and tobacco status: never smoked Alcohol intake: never Substance/Drug Use: never Adopted: No Caregiver/support person: No Lives independently: Yes Marital status: Current occupational status: retired Do you think of yourself as: Straight/Heterosexual Current gender identity: Female Data Anesthesia Cardiac Studies: No Data to Display
[2022-11-14] VITALS (11 sets, daily range): BP systolic 162–188; BP diastolic 65–95; PULSE 71–100; RESP 14–18; TEMP 36.1–36.6; O2SAT 95–100
--- NOTE | 2022-11-14 08:24 | SC_ITS ---
WS: [id number] EXAMINATION: C-arm FL for Kyphoplasty ORDER DATE: 11/14/2022 8:24 AM REASON FOR EXAM: L1 Kyphoplasty COMPARISON: None available. FLUOROSCOPY TIME: 36 seconds # OF SPOT FILMS: 2 FINDINGS: Injection of radiopaque methylmethacrylate into the previously demonstrated L1 compression fracture. Methylmethacrylate occupies the central portion of the vertebral body anterior to posterior with post erior extension into the intervertebral disc space. SC/C-arm FL for Kyphoplasty IMPRESSION: L1 vertebral plasty as above.
[2022-11-14] MEDS: sodium chloride 0.9% 1,000 ML 30 ML IV (08:58)
--- NOTE | 2022-11-14 09:02 | W.PM.OPSUD ---
Surgery/Procedure H&P Update DATE OF PROCEDURE: November 14, 2022 DATE H&P PERFORMED: 11/03/22 H&P UPDATE INFORMATION: I have reviewed H&P completed within last 30 days, I have examined patient prior to procedure and No changes to prior documentation PREOP DIAGNOSIS: L1 Compression Fracture PLANNED PROCEDURE: Operation Date: 11/14/22 10:05 Proposed Procedures p Kyphoplasty [id number],S32.010A(Not Applicable) - Tan Kramer DO
[2022-11-14] MEDS: scopolamine 1.5 Patch 1 PATCH TRANSDERMA (09:17)
[2022-11-14] MEDS: ceFAZolin 2,000 MG in sodium chloride 0.9% (plus) 50 ML 100 MG IV (09:41)
[2022-11-14] MEDS: iohexol 300 mg/mL 50 mL Btl (OR ONLY) XX (10:12)
[2022-11-14] MEDS: lidocaine-epi 1% 20 mL INJ INJECTION (10:12)
--- NOTE | 2022-11-14 10:30 | PM.OP ---
Operative Report Date of procedure: November 14, 2022 Pre-op diagnosis: Preop Diagnosis L1 traumatic osteoporotic wedge Compression Fracture Post-op diagnosis: same Procedure done: L1 kyphoplasty Surgeon: Tan Kramer Estimated blood loss (mL): 5 Procedure: L1 kyphoplasty Patient was brought the operative suite after undergoing his use was in the prone position. All areas of pressure well-padded. Patient was prepped draped no sterile fashion. Skin incision made over the L1 pedicle laterally. On the left side. The awl was inserted first. Followed by the drill. Followed by the balloon. Balloon was inflated then deflated. And then cement was injected. Once the cement was injected the tubes were pulled. AP lateral fluoroscopy ensured the cement was in good position. Wounds irrigated and closed with nylon suture. Sterile dressings were applied. Patient was transferred to the PACU in stable condition.
[2022-11-14] MEDS: fentaNYL 50 mcg/mL INJ 2mL IVP (10:42)
[2022-11-14] MEDS: labetalol 5 mg/mL SDV 20mL IVP (10:46)
[2022-11-14] MEDS: TRAMadol 50 mg Tablet PO (11:20)
--- NOTE | 2022-11-14 12:03 | SUR.PHASEII ---
1115 up to bathroom and voiding without any problems
--- NOTE | 2022-11-14 13:38 | ANES.PAUD2 ---
Pre-Anesthetic Update Pre-Anesthetic Assessment: Date of Surgery/Procedure: 11/14/22 Preop Diagnosis: L1 Compression Fracture Proposed Procedure: Operation Date: 11/14/22 10:05 Proposed Procedures p Kyphoplasty [id number],S32.010A(Not Applicable) - Tan Kramer, DO Any changes to Pre-Anesthetic Assessment?: No Last Intake: Intake Last Liquid Date 11/13/22 Last Liquid Time 21:30 Last Solid Date 11/13/22 Last Solid Time 21:30 Vitals: Temperature 98 F 11/14/22 11:00 Temperature Source Temporal Artery S can 11/14/22 11:00 Pulse Rate 74 11/14/22 11:15 Respiratory Rate 16 11/14/22 11:15 Respiratory Effort Spontaneous, Non- Labored 11/14/22 10:42 Respiratory Depth Normal 11/14/22 10:42 Respiratory Patter n Normal 11/14/22 10:42 Blood Pressure 166/70 11/14/22 11:15 Blood Pressure Brittany n 102 11/14/22 11:15 Pulse Oximetry 97 11/14/22 11:15 Oxygen Delivery Me thod Room Air 11/14/22 11:15 Oxygen Flow Rate 6 11/14/22 10:33 Exam: Pre-Anes Outpt Exam: alert, oriented x 3, clear to auscultation bilaterally and regular rate & rhythm Cardiac Studies: No Data to Display
== END 2022-11-14 11:55 | disposition home or self-care (01) ==
PROVIDERS: PCP Nurse Practitioner Family; Visit Provider Orthopaedic Surgery
PROC: (CPT 22514; principal; 2022-11-14 09:55)
DX: M80.08XA Age-related osteoporosis with current pathological fracture, vertebra(e), initial encounter for fracture (principal); M48.061 Spinal stenosis, lumbar region without neurogenic claudication; I12.9 Hypertensive chronic kidney disease with stage 1 through stage 4 chronic kidney disease, or unspecified chronic kidney disease; N18.9 Chronic kidney disease, unspecified; K21.9 Gastro-esophageal reflux disease without esophagitis; E78.5 Hyperlipidemia, unspecified; E78.00 Pure hypercholesterolemia, unspecified; Z79.891 Long term (current) use of opiate analgesic; Z79.899 Other long term (current) drug therapy; Z88.1 Allergy status to other antibiotic agents
CPT/HCPCS: 22514; 76000; J0690; J1100; J1200; J2370; J2405; J2704; J2710; J3010; J3490; J7030

== ENCOUNTER → 2022-11-24 15:19 | Outpatient (BNVA) | payer MEDICARE, MEDICAID, SELFPAY | PROVIDERS: PCP Nurse Practitioner Family; Visit Provider Physician Assistant | DX: M51.36 Other intervertebral disc degeneration, lumbar region (principal); M48.061 Spinal stenosis, lumbar region without neurogenic claudication | CPT/HCPCS: 72100; 99024 ==

== ENCOUNTER → 2023-01-16 09:31 | Outpatient (BNVA) | payer MEDICARE, MEDICAID, SELFPAY | PROVIDERS: PCP Nurse Practitioner Family; Visit Provider Anesthesiology Pain Medicine | DX: G89.29 Other chronic pain; M51.36 Other intervertebral disc degeneration, lumbar region; M48.061 Spinal stenosis, lumbar region without neurogenic claudication; M48.02 Spinal stenosis, cervical region | CPT/HCPCS: 99205 ==

== ENCOUNTER → 2023-02-01 14:40 | Outpatient (BNVA) | payer MEDICARE, MEDICAID, SELFPAY | PROVIDERS: PCP Nurse Practitioner Family; Visit Provider Anesthesiology Pain Medicine | DX: M54.16 Radiculopathy, lumbar region (principal); G89.29 Other chronic pain | CPT/HCPCS: 64483; 64484; J1100; J3490 ==

== ENCOUNTER → 2023-02-15 10:23 | Outpatient (BNVA) | payer MEDICARE, MEDICAID, SELFPAY | PROVIDERS: PCP Nurse Practitioner Family; Referring Provider Physician Assistant; Visit Provider Internal Medicine | DX: G89.29 Other chronic pain; M54.16 Radiculopathy, lumbar region; E55.9 Vitamin D deficiency, unspecified; M81.0 Age-related osteoporosis without current pathological fracture; S32.010A Wedge compression fracture of first lumbar vertebra, initial encounter for closed fracture; X58.XXXA Exposure to other specified factors, initial encounter | CPT/HCPCS: 36415; 64483; 64484; 80053; 82306; 82310; 83970; 84439; 84443; 99204; J1100; J3490 ==

== ENCOUNTER 2023-03-01 10:14 | Outpatient (CLI) | payer MEDICARE, MEDICAID, SELFPAY ==
--- NOTE | 2023-03-01 14:00 | XR_ITS ---
WS: [id number] DEXA (DUAL ENERGY X-RAY ABSORPTIOMETRY) Bone mineral density was performed using a Getui machine. HISTORY: osteoporosis COMPARISON: None available. Left forearm BMD: 0.644 g/cm2. T score: -2.6 Z score: 0.2 Total hip BMD: Left: 0.796 g/cm2. T score: -1.7 Z score: 0.0 Right: 0.741 g/cm2. T score: -2.1 Z score: -0.5 10 year probability of a major osteoporotic fracture is 29.3%. IMPRESSION: OSTEOPOROSIS based upon the WHO classification for females.
== END 2023-03-01 10:15 ==
PROVIDERS: PCP Nurse Practitioner Family; Visit Provider Internal Medicine
DX: E55.9 Vitamin D deficiency, unspecified (principal); G89.29 Other chronic pain; M54.9 Dorsalgia, unspecified; M81.0 Age-related osteoporosis without current pathological fracture; M54.16 Radiculopathy, lumbar region; M51.36 Other intervertebral disc degeneration, lumbar region; M48.061 Spinal stenosis, lumbar region without neurogenic claudication; M48.02 Spinal stenosis, cervical region
CPT/HCPCS: 77080; 99214

== ENCOUNTER → 2023-03-16 09:40 | Outpatient (BNVA) | payer MEDICARE, MEDICAID, SELFPAY | PROVIDERS: PCP Nurse Practitioner Family; Visit Provider Internal Medicine | DX: E55.9 Vitamin D deficiency, unspecified (principal); M54.9 Dorsalgia, unspecified; G89.29 Other chronic pain; M81.0 Age-related osteoporosis without current pathological fracture | CPT/HCPCS: 99214 ==

== ENCOUNTER → 2023-05-18 10:26 | Outpatient (BNVA) | payer MEDICARE, MEDICAID, SELFPAY | PROVIDERS: PCP Nurse Practitioner Family; Visit Provider Anesthesiology Pain Medicine | DX: G89.29 Other chronic pain; M51.36 Other intervertebral disc degeneration, lumbar region; M48.061 Spinal stenosis, lumbar region without neurogenic claudication; M48.02 Spinal stenosis, cervical region; S32.010A Wedge compression fracture of first lumbar vertebra, initial encounter for closed fracture; X58.XXXA Exposure to other specified factors, initial encounter; E55.9 Vitamin D deficiency, unspecified; M81.0 Age-related osteoporosis without current pathological fracture; E78.5 Hyperlipidemia, unspecified; M54.9 Dorsalgia, unspecified | CPT/HCPCS: 99214 ==

== ENCOUNTER → 2023-07-10 12:33 | Outpatient (BNVA) | payer MEDICARE, MEDICAID, SELFPAY | PROVIDERS: PCP Nurse Practitioner Family; Visit Provider Anesthesiology Pain Medicine | DX: M54.16 Radiculopathy, lumbar region (principal); G89.29 Other chronic pain | CPT/HCPCS: 64483; 64484 ==

== ENCOUNTER → 2023-07-31 11:04 | Outpatient (BNVA) | payer MEDICARE, MEDICAID, SELFPAY | PROVIDERS: PCP Nurse Practitioner Family; Visit Provider Anesthesiology Pain Medicine | DX: G89.29 Other chronic pain; M51.36 Other intervertebral disc degeneration, lumbar region; M48.061 Spinal stenosis, lumbar region without neurogenic claudication; M48.02 Spinal stenosis, cervical region | CPT/HCPCS: 99214 ==

== ENCOUNTER → 2023-11-15 16:03 | Outpatient (BNVA) | payer MEDICARE, MEDICAID, SELFPAY | PROVIDERS: PCP Nurse Practitioner Family; Visit Provider Family Medicine | DX: N28.9 Disorder of kidney and ureter, unspecified | CPT/HCPCS: 80048; 85025 ==

== ENCOUNTER → 2025-04-02 15:20 | Outpatient (BNVA) | payer MEDICARE, MEDICAID, SELFPAY | PROVIDERS: PCP Family Medicine; Visit Provider Family Medicine | DX: I10 Essential (primary) hypertension (principal) | CPT/HCPCS: 80053; 85025 ==